=== PATIENT | female | born 1980 | race Caucasian/White ===

== ENCOUNTER 2019-04-05 22:11 | Emergency (ER) | payer BC ==
[2019-04-05] MEDS ORDERED: Lidocaine 2% Viscous Solution 15 ML Cup PO ONE (22:27)
--- NOTE | 2019-04-05 22:31 | EDM.PDOC ---
ED HPI GENERAL MEDICAL PROBLEM - General Chief Complaint: ENT Problem Stated Complaint: SORE THROAT Time Seen by Provider: 04/05/19 22:22 - History of Present Illness INITIAL COMMENTS - FREE TEXT/NARRATIVE: HISTORY AND PHYSICAL: History of present illness: The patient is a 38-year-old female who has never had strep throat or tonsillitis and did not have a tonsillectomy in the past and presents with 3 days of sore throat pain with swallowing and fevers which are subjective. The patient has not had a cough runny nose nausea vomiting or diarrhea and she denies . She's had no chest pain or abdominal pain. She has never had mono. She does not have a local provider but does live here locally. She says she is able to tolerate soft foods and liquids but there is pain with swallowing. Review of systems: As per history of present illness and below otherwise all systems reviewed and negative. Past medical history: As per history of present illness and as reviewed below otherwise noncontributory. Surgical history: As per history of present illness and as reviewed below otherwise noncontributory. Social history: No reported history of drug or alcohol abuse. Family history: As per history of present illness and as reviewed below otherwise noncontributory. Physical exam: General: Well-developed well-nourished female who speaks softly but does not have a hoarse or muffled voice HEENT: Atraumatic, normocephalic, pupils reactive, negative for conjunctival pallor or scleral icterus, mucous membranes moist, throat is enlarged tonsils bilaterally and exudates but the tonsils are not kissing or grossly swollen and the uvula is midline,, neck supple, nontender, trachea midline. There is some shoddy anterior cervical adenopathy but no posterior adenopathy or nuchal rigidity Lungs: Clear to auscultation, breath sounds equal bilaterally, chest nontender. Heart: S1S2, regular rhythm slightly tachycardic rate on my evaluation no overt murmurs Abdomen: Soft, nondistended, nontender. NABS Pelvis: Deferred Genitourinary: Deferred. Rectal: Deferred. Extremities: Atraumatic, negative for cords or calf pain. Neurovascular unremarkable. Neuro: Awake, alert, oriented. Cranial nerves II through XII unremarkable. Cerebellum unremarkable. Motor and sensory unremarkable throughout. Exam nonfocal. Diagnostics: [] Therapeutics: Viscous lidocaine Impression: Exudative tonsillitis Definitive disposition and diagnosis as appropriate pending reevaluation and review of above. 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 ED EXAM, GENERAL - Physical Exam Exam: See Below (See dictation) Course - Vital Signs Last Recorded V/S: Last Vital Signs Temp 36.6 C 04/05/19 22:15 Pulse 111 H 04/05/19 22:15 Resp 18 04/05/19 22:15 BP 136/76 04/05/19 22:15 Pulse Ox 99 04/05/19 22:15 - Orders/Labs/Meds Orders: Active Orders 24 hr Category Date Time Status Lidocaine 2% [Xylocaine 2% Viscous] Med 04/05/19 22:27 Once 15 ml PO ONETIME ONE Departure - Departure Time of Disposition: 22:29 Disposition: Home, Self-Care 01 Condition: Good Clinical Impression: Exudative tonsillitis - Discharge Information Referrals: PCP,None [Primary Care Provider] - Additional Instructions: The following information is given to patients seen in the emergency department who are being discharged to home. This information is to outline your options for follow-up care. We provide all patients seen in our emergency department with a follow-up referral. The need for follow-up, as well as the timing and circumstances, are variable depending upon the specifics of your emergency department visit. If you don't have a primary care physician on staff, we will provide you with a referral. We always advise you to contact your personal physician following an emergency department visit to inform them of the circumstance of the visit and for follow-up with them and/or the need for any referrals to a consulting specialist. The emergency department will also refer you to a specialist when appropriate. This referral assures that you have the opportunity for followup care with a specialist. All of these measure are taken in an effort to provide you with optimal care, which includes your followup. Under all circumstances we always encourage you to contact your private physician who remains a resource for coordinating your care. When calling for followup care, please make the office aware that this follow-up is from your recent emergency room visit. If for any reason you are refused follow-up, please contact the [facility] emergency department at and ask to speak to the emergency department charge nurse. [facility] Primary care- Internal Medicine and Family [address] [id number] Push fluids and eat soft foods and take antibiotics as you have been prescribed from [facility], Augmentin. Continue to use [id number] Tylenol or Motrin/ ibuprofen for pain and fevers. Please schedule a follow-up appointment in the clinic with one of our providers for reevaluation and further care and return to ER as needed and as discussed. You may fill the prescription for the viscous lidocaine as you choose for pain management. - My Orders Last 24 Hours: My Active Orders 04/05/19 22:27 Lidocaine 2% [Xylocaine 2% Viscous] 15 ml PO ONETIME ONE - Assessment/Plan Last 24 Hours: My Active Orders 04/05/19 22:27 Lidocaine 2% [Xylocaine 2% Viscous] 15 ml PO ONETIME ONE
[2019-04-05 22:48] VITALS: BP 121/73
== END 2019-04-05 22:45 | disposition home or self-care (01) ==
LOC: MW.ED 22:11
DX: J03.90 Acute tonsillitis, unspecified (principal)
CPT/HCPCS: 99282; A9270

== ENCOUNTER 2022-05-14 21:40 | Inpatient (IN) | payer SELFPAY ==
[2022-05-14] MEDS ORDERED: Tranexamic Acid 1,000 MG in Sodium Chloride 0.9% 100 ML IV PRN (22:36)
[2022-05-14] MEDS ORDERED: Bisacodyl 10 MG Supp RECTAL PRN (22:36)
[2022-05-14] MEDS ORDERED: Methylergonovine 0.2 MG/1 ML Amp IM PRN (22:36)
[2022-05-14] MEDS ORDERED: Lanolin 100% Cream 7 GM Tube TOP PRN (22:36)
[2022-05-14] MEDS ORDERED: Misoprostol 200 MCG Tab RECTAL PRN (22:36)
[2022-05-14] MEDS ORDERED: Benzocaine/Menthol 20%-0.5% Spray 78 GM Cannister TOP PRN (22:36)
[2022-05-14] MEDS ORDERED: Witch Hazel Medicated Pads 40/Jar TOP PRN (22:36)
[2022-05-14] MEDS ORDERED: Docusate Sodium 100 MG Cap PO PRN (22:36)
[2022-05-14] MEDS ORDERED: Diphtheria,Pertussis(Acell),Tetanus Vaccine 0.5 ML Syringe IM ONE (22:36)
[2022-05-14] MEDS ORDERED: Ibuprofen 400 MG Tab PO PRN (22:36)
[2022-05-14] MEDS ORDERED: Acetaminophen 500 MG Tab PO PRN ×2 (22:36)
[2022-05-14] MEDS ORDERED: Measles, Mumps & Rubella Vaccine 0.5 ML SDV SUBCUT ONE (22:36)
[2022-05-14] MEDS ORDERED: Ibuprofen 800 MG Tab PO PRN (22:36)
[2022-05-14] MEDS ORDERED: Carboprost Tromethamine 250 MCG/1 ML Amp IM PRN (22:36)
[2022-05-15 01:28] LABS: HEMOGLOBIN A1C 5.8 %
[2022-05-15 02:43] LABS: HIV12 AG/AB 4TH GEN W/REFLEX < 0.1 INDEX (<1.0)
[2022-05-15 08:27] VITALS: BP 121/88; PULSE 95
== END 2022-05-15 10:40 | disposition home or self-care (01) | DRG 807 ==
LOC: MW.OBCHECK 21:40 → MW.OB 21:44 → OBSVTOIN 21:50 → MW.OB 21:50
PROVIDERS: ADMIT Obstetrics & Gynecology; ATTEND Obstetrics & Gynecology
PROC: 10E0XZZ Delivery of Products of Conception, External Approach (ICD-10-PCS; principal; 2022-05-14)
DX: O77.0 Labor and delivery complicated by meconium in amniotic fluid (principal); Z37.0 Single live birth; O62.3 Precipitate labor; O99.334 Smoking (tobacco) complicating childbirth; F17.210 Nicotine dependence, cigarettes, uncomplicated; Z20.822 Contact with and (suspected) exposure to COVID-19; Z3A.39 39 weeks gestation of pregnancy
CPT/HCPCS: 36415; 59025; 59409; 82803; 83036; 85025; 86592; 86803; 86850; 86900; 86901; 87340; 87389; U0002

== ENCOUNTER 2023-09-08 11:18 | Emergency (ER) | payer SELFPAY ==
[2023-09-08 17:44] VITALS: BP 143/77; PULSE 85
== END 2023-09-08 13:39 | disposition home or self-care (01) ==
LOC: MW.ED 11:18
DX: K04.7 Periapical abscess without sinus (principal)
CPT/HCPCS: 99282; 99283

== ENCOUNTER 2023-12-12 15:51 | Emergency (ER) | payer SELFPAY ==
[2023-12-12] MEDS: Lidocaine 2% Viscous Solution 15 ML UD PO ONE (16:27)
[2023-12-12] MEDS: Amoxicillin/Clavulanate K 875-125 MG Tab PO ONE (16:27)
[2023-12-12] MEDS: Benzocaine 20% Topical Spray UD MUCMEM ONE (16:27)
[2023-12-12 16:44] VITALS: BP 125/87; PULSE 63
== END 2023-12-12 16:37 | disposition home or self-care (01) ==
LOC: MW.ED 15:51
DX: K04.7 Periapical abscess without sinus (principal)
CPT/HCPCS: 99282; A9270; 99283

== ENCOUNTER 2025-09-09 12:39 | Emergency (ER) | payer MEDICAID ==
[2025-09-09 12:48] VITALS: BP 143/101; PULSE 82
[2025-09-09] MEDS: Orphenadrine 60 MG/2 ML Inj IM ONE (13:09)
[2025-09-09] MEDS: Ketorolac 30 MG/ML SDV IM ONE (13:09)
[2025-09-09] MEDS: Dexamethasone Sod Phos Preservative Free 10 MG/ML Vial IM ONE (13:10)
== END 2025-09-09 13:42 | disposition home or self-care (01) ==
LOC: MW.ED 12:39
DX: M54.41 Lumbago with sciatica, right side (principal); J45.909 Unspecified asthma, uncomplicated; Z79.899 Other long term (current) drug therapy; Z75.3 Unavailability and inaccessibility of health-care facilities
CPT/HCPCS: 96372; 99283; A9270; J1100; J1885; J2360